=== PATIENT | male | born 1940 | race Caucasian/White ===

== ENCOUNTER 2017-11-21 09:16 | Inpatient (IN) | payer OTHER, SELFPAY ==
[2017-11-06 08:58] VITALS: BMI 32.8
[2017-11-21] VITALS (14 sets, daily range): BP systolic 114–163; BP diastolic 70–82; PULSE 66–87; RESP 10–18; TEMP 36.5–36.7; O2SAT 88–98; BMI 30.9
--- NOTE | 2017-11-21 | DI.RAD.S_ITS ---
PROCEDURE: XR LUMBAR SPINE 2-3V INDICATIONS: XLIF TECHNIQUE: 2 views of the lumbar spine were acquired. COMPARISON: None. FINDINGS: 2 spot fluoroscopic intraoperative views demonstrating L2-L4 left-sided paraspinal machelle and pedicle screw fixation, and interbody cage grafts Dictated by: Michael Lopez M.D. on 11/21/2017 at 19:49 Approved by: Michael Lopez M.D. on 11/21/2017 at 19:50
[2017-11-21] MEDS: LACTATED RINGERS 1,000 ML 42 ML IV ×2 (10:40→15:08)
[2017-11-21] MEDS: CEFAZOLIN 2 GM/100 ML FROZ.PIGGY IV ×2 (13:15→21:10)
--- NOTE | 2017-11-21 14:05 | SUR.OPER ---
Right lateral on padded OR table. Head on pillow, gel axillary roll, pillow to support left arm. Legs flexed, pillows between legs, gel pad under down leg and ankle. Multiple passes of 3 inch cloth tape across shoulder, hip, upper and lower legs to secure patient on OR table. Prone on spine table, head in foam head support, padded chest and pelvic supports, gel pad at knees, lower legs supported by pillows; nipples, genitalia and toes free of pressure, arms secured on foam padded arm boards at <90 degrees abduction. Tape over blanket at thigh secured to table.
[2017-11-21] MEDS: VANCOMYCIN 1,000 MG VIAL 1000 MG TOP (14:16)
[2017-11-21] MEDS: THROMBIN (BOVINE) 5,000 UNIT VIAL 5000 UNIT TOP (14:16)
[2017-11-21] MEDS: BUPIVACAINE 0.5% (PF) 4 ML, MORPHINE-PF 4 MG, BUTORPHANOL 1 MG, fentaNYL 100 MCG INJ (14:16)
[2017-11-21] MEDS: SODIUM CHLORIDE 0.9% 1,000 ML, GENTAMICIN 80 MG IRR (14:17)
--- NOTE | 2017-11-21 16:29 | PM.OP.1 ---
Operative Date/Time/Diagnoses Date of procedure: 11/21/17 Time of procedure: 16:29 Pre-op diagnosis: Lumbar stenosis with radiculopathy History of lumbar laminectomy Lumbar disc herniation Post-op diagnosis: same Procedure & Clinicians Procedure: L2-3, L3-4 anterior fusion with cages L2-3, L3-4 posterior fusion L2, L3, L4 screws Iliac crest bone graft L2-3 diskectomy Use of microscope Placement of epidural catheter Same procedure as scheduled: Yes Indications: [age] year old male with intractable pain from lumbar disc herniation and stenosis. They had failed conservative management and requested operative intervention. Risks and benefits of surgery were discussed and appropriate consents were obtained. Surgeon: Be Beckham Creative Recruiter: Radha Walters Click Yes if Unassisted: No Anesthesia Type: General Operative Notes Findings: None Closure Type: primary Specimen(s): none sent Implants & Drains: Nuvasive XLIF cages and MAS Reline screws Applied: catheter Estimated Blood Loss (mL): 30 Procedure in detail: Patient was brought to the operating room and intubated on the table. Time-out was performed. They were then rolled over to the lateral decubitus position with the [id number]. The table was bent and they were taped down in the correct position. X-rays were taken to confirm a true AP and lateral. Preoperative antibiotics were given. The left flank was prepped and draped in standard sterile fashion. Using fluoroscopy, a 3 cm incision was made above the iliac crest. We bluntly dissected down with Metzenbaum scissors and split the 3 abdominal muscle layers. We dissected out the retroperitoneal space and using finger guidance, brought our 1st dilator down to the psoas muscle. Using neuromonitoring and fluoroscopy, we placed it through the psoas onto the L3-4 disc space in an anterior position and gradually pulled the dilator posteriorly along the disc space. We placed our guidewire and measured our depth for the retractor. We then dilated with the next 2 dilators and then placed our retractor over the dilators. Position was confirmed with fluoroscopy and the retractor was locked down to the bar. We opened up the retractor and checked with neuro monitoring. We then placed the dashawn and again checked with neuro monitoring. The retractor was opened further and the ALL retractor was placed. An annulotomy was performed. We then performed a complete diskectomy with ring curette, pituitary, box osteotome. A Willis was advanced across the disc space under fluoroscopy to release the lateral annulus on the opposite side. We then used sequentially larger trials and confirmed under fluoroscopy. An XLIF cage was packed with Osteocell bone graft and impacted into the L3-4 disc space with fluoroscopy for the anterior fusion at this level. The wound was irrigated. The retractor was closed down. The dashawn was removed. We carefully removed the retractor with direct visualization to make sure there was no neurovascular or abdominal injury. X-rays were taken. We then went up to L2-3. Using the same technique with dilation, retractor, diskectomy, and placement of an anterior cage with bone graft, we did the anterior fusion at L2-3. The retractor was carefully removed and final x-rays were taken. The muscle fascia was closed, superficial tissue was closed. The skin was closed. Sterile dressing was placed. The patient was then rolled over on the well-padded prone position on the Trav table. Using fluoroscopy for localization, a 5 cm incision was made to the well-marked left of the midline. We split down through the lumbodorsal fascia with the Bovie. We then percutaneously placed Jamshidi needles down the left pedicles of L2, L3, and L4 with fluoroscopy and neural monitoring. We change these out guidewires. We then tapped and placed our screw shanks. We opened up the retractor blades. We dissected the posterolateral gutter and the transverse processes of L2, L3 and L4 as well as medially along the lamina at L2-3. We used a bur to decorticate the transverse processes. We then brought in the microscope. A left-sided laminotomy was performed at L2-3 with a bur and Kerrison rongeurs. We kept working out laterally , almost removing the whole pars, and inferiorly until we were coming up underneath the L3 lamina and exposed below our pedicle of L3. The dura was densely scarred down to the disc below it but we were gradually able to free this up with a ball probe. We were able to free up several loose extruded fragments matching up to his disc herniation. At the end we could sweep a ball probe underneath the exiting nerve root as well as the dura and the nerve root above and there was no further pressure on the nerves. This completed the diskectomy. The wound was copiously irrigated. A small stab incision was made over the PSIS and a Jamshidi needle was placed into the iliac crest and several mL of bone marrow was aspirated. This was mixed with our locally harvested bone graft as well as the remaining Osteocell and placed in the posterolateral gutter for fusion at L2-3 and L3-4. An epidural catheter was primed with 4mL of 0.5% bupivacaine, 100 mcg fentanyl, 4 mg Duramorph, 1 mg Stadol. The dura was depressed under the cephalad lamina with a ball probe and the epidural catheter was gently advanced 6 cm cephalad. The fascia was then closed. The epidural was then injected without resistance. The catheter was pulled and we closed more over the fascia. Vancomycin powder was placed in the wound. The superficial and skin were closed. Sterile dressing was placed. The patient was then rolled over, extubated, brought to the recovery room with no complications. Complications: none Condition: stable Disposition: PACU Plan for aftercare: Inpatient. Up with physical therapy
--- NOTE | 2017-11-21 17:14 | SUR.PHASEI ---
Report given to [place]
--- NOTE | 2017-11-21 17:37 | SUR.PHASEI ---
patient denies pain. Responds appropriately to questions and following commands but still drowsy and calling out go [employer]! vital signs remain stable
[2017-11-21] MEDS: fentaNYL 100 MCG/2 ML INJ IV (17:42)
[2017-11-21] MEDS: CELECOXIB 200 MG CAPSULE 400 MG PO (19:23)
[2017-11-21] MEDS: HYDROCODONE/ACET 5/325 TABLET 2 TAB PO (19:24)
[2017-11-21] MEDS: LACTATED RINGERS 1,000 ML 125 ML IV (19:28)
[2017-11-21] MEDS: ONDANSETRON 4 MG/2 ML INJ IV (19:30)
[2017-11-21] MEDS: LORazepam 2 MG/ML SYRINGE 0.25 MG IV (21:30)
[2017-11-22] VITALS (8 sets, daily range): BP systolic 122–150; BP diastolic 47–82; PULSE 63–77; RESP 15–20; TEMP 36.4–36.7; O2SAT 92–99; BMI 31.2
[2017-11-22] MEDS: LACTATED RINGERS 1,000 ML 125 ML IV ×2 (03:30→12:28)
[2017-11-22] MEDS: ONDANSETRON 4 MG/2 ML INJ IV (04:56)
[2017-11-22] MEDS: CEFAZOLIN 2 GM/100 ML FROZ.PIGGY IV (04:57)
[2017-11-22] MEDS: LORazepam 2 MG/ML SYRINGE 0.25 MG IV (04:57)
[2017-11-22 05:17] LABS: Hematocrit 38.9 % (41-53); Hemoglobin 12.8 g/dL (13.5-17.5)
[2017-11-22 05:29] LABS: Blood Urea Nitrogen 21 mg/dL (9-20); Calcium 8.8 mg/dL (8.4-10.2); Carbon Dioxide 24 mmol/L (22-32); Chloride 103 mmol/L (98-107); Estimated Glomerular Filt Rate > 60.0 mL/min (>60); Glucose 208 mg/dL (80-110); HEMOLYSIS < 15 (0-50); Potassium 4.5 mmol/L (3.4-5.1); Sodium 141 mmol/L (137-145)
--- NOTE | 2017-11-22 06:08 | PC.NURSE ---
As per previous RN report, Patient was nauseous throughout evening shift and vomitted 50cc. 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 About ten minutes later patient vommited another 200cc. I gave him ativan and zofran and soon after patient fell back asleep and has been sleeping since. I did not give him his Synthroid due to his vomitting. IV ABX and fluids continued however. No complaints of pain. Hillman patent, draining 300mL of clear yellow urine. SCD's applied on and off for patient wanting them off at times during sleep. Continued on 3L NC for low O2 saturations while sleeping, usually at around 92%.
--- NOTE | 2017-11-22 08:01 | PM.PNPO.1 ---
Subjective Date Patient Seen: 11/22/17 Time Patient Seen: 08:01 Interval history: He did sleep well last night. Had some nausea and vomiting although that is better. Pain is minimal. Exam Vital Signs (past 8 hours): - 11/22/17 04:18 11/22/17 04:56 Temperature 97.8 F Pulse Rate 70 75 Respiratory Rate 16 Blood Pressure 150/82 H Pulse Oximetry 92 97 Oxygen Delivery Method Nasal Cannula Oxygen Flow Rate 3 Const Orientation: alert and oriented x3 Back/Spine/Pelvis Other: Dressing CDI. 5/5 motor both lower extremities Objective Labs Result Diagrams: 11/22/17 05:00 11/22/17 05:00 Labs: Laboratory Results - last 24 hr 11/22/17 11/22/17 05:00 05:00 Hgb 12.8 L Hct 38.9 L Sodium 141 Potassium 4.5 Chloride 103 Carbon Dioxide 24 BUN 21 H Creatinine 1.00 Estimated GFR > 60.0 BUN/Creatinine Ratio 21.0 Glucose 208 H Calcium 8.8 Assessment & Plan Post-op Postoperative Procedures Operation Date: 11/21/17 11:15 Actual Procedures Side Surgeon p L2-3,L3-4 Ant/Post Instru. Fusion w/Bone Graft. Revision Laminectomy & Left Discectomy L2-3 Be Beckham MD He is doing well with pain. We will get him up with physical therapy today. His glucose is high and we will treat this. Quality VTE Deep Vein Thrombosis/Pulmonary Embolism Present on Admission: No
--- NOTE | 2017-11-22 08:37 | PC.NURSE ---
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 patient refusing anti emetics at this time, stating his body does not do well with multiple medications. Patient requesting acidophilis (he takes at home for upset stomach). patient advised to not eat full breakfast this morning (full tray delivered) and removed from room, patient requested to have tray back in room and wants to attempt to eat after his acidophilis). Will contact PA and continue to follow. Call light within reach.
--- NOTE | 2017-11-22 09:05 | CM.DANOTE ---
DCP: Case received, EMR reviewed and met with patient. Introduced self and role. DCP template completed with information currently available. Patient is a 77 year old male who admitted yesterday morning to the care of the hospitalist team. PCP: Dr. Bustamante. Payer: confirmed: Patricia of [facility]. Patient was admitted to the hospital for anterior posterior fusion. Has history of lumbar stenosis. Patient alert and oriented, independent at home, and lives with his spouse in [place]. P: DCP to continue to assess. Plan is to return home with possible outpatient physical therapy. Marion Pacheco RN/Road Train Driver
[2017-11-22] MEDS: METOCLOPRAMIDE 10 MG/2 ML INJ IV (10:44)
--- NOTE | 2017-11-22 11:09 | PT.IIE ---
Current Diagnoses Other intervertebral disc displacement, lumbar region (11/21/17) Strain of muscle, fascia and tendon of lower back, subsequent encounter (11/21/17) Other specified postprocedural states (11/21/17) Surgery Performed Operation Date: 11/21/17 11:15 Actual Procedures p L2-3,L3-4 Ant/Post Instru. Fusion w/Bone Graft. Revision Laminectomy & Left Discectomy L2-3 - Be Beckham MD Surgical History (Last Updated 11/06/17 @ 09:42 by Mariluz Rider RN) History of carpal tunnel surgery of right wrist (Acute) History of lumbar surgery (Acute) History of vasectomy (Acute) Hx of tonsillectomy (Acute) S/P cervical spinal fusion (Acute) Status post cataract extraction and insertion of intraocular lens of right eye (Acute) Medical History (Last Updated 11/06/17 @ 09:42 by Mariluz Rider RN) Chronic back pain (Acute) Depression (Acute) GERD (gastroesophageal reflux disease) (Acute) HTN (hypertension) (Acute) Hyperlipidemia (Acute) Hypothyroid (Acute) Kidney stones (Acute) LBBB (left bundle branch block) (Acute) Myocardial infarct (Acute) Numbness (Acute) Pre-diabetes (Acute) Sciatica (Acute) Seasonal allergies (Acute) Physical Therapy Inpatient Evaluation/Re-Eval M1 PT/OT-IP Prior Functional Status Start: 11/22/17 12:00 Freq: NEEDED Status: Active Protocol: Document 11/22/17 11:09 MDD (Rec: 11/22/17 12:12 MDD [id number]) Medical Review Prior Functional Status Medical History Reviewed Yes Communication normal Mobility and Gait Independent without AD, pt occasionally used walker in the home. Activities of Daily Living and IADL's independent Social History Household Members spouse Living Arrangements House Number of Floors (Floors) One Floor Number of Stairs To Enter/Railing? 2 steps to enter, no railings Home Environment High Toilet Walk in Shower Home Equipment Front Wheel Walker Straight Cane Employment Status Retired Additional Social History Comment Pt lives with his , Vanda , in [place]. He thinks they have a shower chair, but is not sure. His was not present during the session today. M2 PT-IP Current Condition Start: 11/22/17 12:00 Freq: NEEDED Status: Active Protocol: Document 11/22/17 11:09 MDD (Rec: 11/22/17 12:12 [facility] [id number]) Physical Therapy Current Condition Current Condition Evaluation Date 11/22/17 Treatment Diagnosis s/p TLIF Onset Date 11/21/17 Precautions Lumbar Precautions Log Roll No Twisting Limit Bending Lifting Restriction of 10 lbs Gait Belt above Incisional Area Other Precautions flores catheter Weight Bearing Status Weight Bearing Status Weight Bear as Tolerated M3 PT-IP Subjective Start: 11/22/17 12:00 Freq: NEEDED Status: Active Protocol: Document 11/22/17 11:09 MDD (Rec: 11/22/17 12:12 [facility] [id number]) Subjective Physical Therapy Visit Type Type Initial Evaluation Visit Start Time 10:48 Visit Stop Time 11:09 Total Visit Minutes 21 Number of SLITTING MACHINE OPERATOR HELPER Visits 0 Physical Therapy Visit Comments Patient Comments Pt reports feeling very uncomfortable today. Intermittently nauseated with occasional vomiting. Has not yet been able to eat breakfast . Therapy Pain Assessment Pain When Pain Assessed During Mobility Pain Present Pain Present Pain Reported Location l back Scale Used Pt unable to provide a number for pain. Description Aching Pain Behaviors Calling Out Moaning Wincing M4 PT-IP Mobility and Gait Start: 11/22/17 12:00 Freq: NEEDED Status: Active Protocol: Document 11/22/17 11:09 MDD (Rec: 11/22/17 12:12 [facility] [id number]) PT-Bed Mobility Assessment Rolling Type of Rolling Roll to Right Level of Assist Minimal Assistance Supine to Sit Supine to Sit Moderate Assistance Bedrails Scooting Scooting to Edge of Bed Standby Assistance PT-Transfer Assessment Sit to and From Stand Sit to and from Stand Contact Guard Assistance Equipment Transfer Assistive Device Gait Belt Front Wheeled Walker Transfers Transfer Destination Chair Toilet Transfer Technique Stand Step Pivot Transfer Ability Level of Assist Contact Guard Assistance Comments Mobility Comments Pt ambulated to and from the BR, was able to perform stand to sit with CGA. Gait Assessment Gait Gait Assistance Required: Contact Guard Assist Distance (Feet) (feet) 20 Able to Maintain Weight Bearing Status Yes During Gait Assistive Devices Assistive Device Gait Belt Front Wheeled Walker Gait Deviations General Gait Pattern Antalgic Decreased Stride Length Step-to Gait Wide Based Gait Comments Gait Comments Pt very guarded with movements . PT-Balance Assessment Sitting Balance and Reactions Static Sitting Balance Ability Normal Dynamic Sitting Balance Ability Normal Standing Balance and Reactions Static Standing Balance Ability Good Dynamic Standing Balance Ability Good M5 PT-IP Objective Assessments Start: 11/22/17 12:00 Freq: NEEDED Status: Active Protocol: Document 11/22/17 11:09 MDD (Rec: 11/22/17 12:12 MDD [id number]) Orientation Orientation/Cognition Level of Alertness Alert Orientation Name Age Birthday Month Date Year Day of Week Place Situation Language Function Ability No Deficits Noted Safety Awareness Understands Safety Issues Memory Description No Deficits Noted Gross Range of Motion Lower Extremity ROM Assessment Within Functional Limits Strength Lower Extremity Strength Assessment Within Functional Limits Sensation Assessment Sensation Gross Sensation WNL Light Touch Intact M6 PT-IP Treatment Start: 11/22/17 12:00 Freq: NEEDED Status: Active Protocol: Document 11/22/17 11:09 MDD (Rec: 11/22/17 12:12 MDD [id number]) Physical Therapy Treatment Education Education Provided Precautions Weight Bearing Status Post-Op Packet Safety M7 PT-IP Assessment and Plan Start: 11/22/17 12:00 Freq: NEEDED Status: Active Protocol: Document 11/22/17 11:09 MDD (Rec: 11/22/17 12:12 MDD [id number]) PT Summary Assessment and Plan Potential Rehabilitation Potential Good Status of Condition at Evaluation Evolving Summary Impairments Pain ROM Bed Mobility Transfers Gait Activity Tolerance Progress Towards Goals Progressing Toward Goals Assessment Summary Pt demonstrates mild impairments in bed mobility and transfers this day secondary to pain. He will benefit from inpatient PT to maximize function prior to d/c home. Per pt report, is able bodied and available to help if needed. He will need to demonstrate ability to ascend/descend stairs safely prior to d/c home. Goals Bed Mobility Goal Independent Transfer Goal Independent Gait Goal Independent Front Wheel Walker Gait Distance 100 feet Other Goals Ascend/descend 2 stairs with no handrails (handhold assist or cane). Frequency of Treatment Frequency Of Treatment Twice a Day Treatment Plan Physical Therapy Treatment Plan Bed Mobility Training Transfer Training Gait Training Therapeutic Exercise Post Op Education Discharge Planning Recommendations To Nursing Amount of Assist Needed 1 Person Assist Discharge Recommendations PT Discharge Recommendations Home Home with Assistance Equipment Needed for Home Before Pt may benefit from a bath Discharge chair if he no longer has one.
[2017-11-22] MEDS: ASPIRIN EC 81 MG TABLET PO (11:30)
[2017-11-22] MEDS: INSULIN ASPART 100 UNIT/ML INSULN PEN SUBCUT (12:14)
[2017-11-22] MEDS: HYDROCODONE/ACET 5/325 TABLET 1 TAB PO ×2 (12:28→19:44)
--- NOTE | 2017-11-22 13:50 | OT.IP.EVAL ---
Current Diagnoses Other intervertebral disc displacement, lumbar region (11/21/17) Strain of muscle, fascia and tendon of lower back, subsequent encounter (11/21/17) Other specified postprocedural states (11/21/17) Surgery Performed Operation Date: 11/21/17 11:15 Actual Procedures p L2-3,L3-4 Ant/Post Instru. Fusion w/Bone Graft. Revision Laminectomy & Left Discectomy L2-3 - Be Beckham MD Past Medical History (Last Updated 11/06/17 @ 09:42 by Mariluz Rider RN) Chronic back pain (Acute) Depression (Acute) GERD (gastroesophageal reflux disease) (Acute) HTN (hypertension) (Acute) Hyperlipidemia (Acute) Hypothyroid (Acute) Kidney stones (Acute) LBBB (left bundle branch block) (Acute) Myocardial infarct (Acute) Numbness (Acute) Pre-diabetes (Acute) Sciatica (Acute) Seasonal allergies (Acute) Surgical History (Last Updated 11/06/17 @ 09:42 by Mariluz Rider RN) History of carpal tunnel surgery of right wrist (Acute) History of lumbar surgery (Acute) History of vasectomy (Acute) Hx of tonsillectomy (Acute) S/P cervical spinal fusion (Acute) Status post cataract extraction and insertion of intraocular lens of right eye (Acute) Occupational Therapy Inpatient Evaluation/Re-Eval M1 PT/OT-IP Prior Functional Status Start: 11/22/17 12:00 Freq: NEEDED Status: Active Protocol: Document 11/22/17 13:50 PJM (Rec: 11/22/17 17:03 PJM [id number]) Medical Review Prior Functional Status Medical History Reviewed Yes Diet/Fluid Consistency Regular Communication normal Mobility and Gait Independent without AD, pt occasionally used walker in the home. Activities of Daily Living and IADL's independent, does all IADLS at home Prior Functional Level (Other details) can provide 24 hr assist at d/c Social History Household Members spouse Living Arrangements House Number of Floors (Floors) One Floor Number of Stairs To Enter/Railing? 2 steps to enter, no railings Home Environment High Toilet Walk in Shower Home Equipment Front Wheel Walker Straight Cane Shower Seat with Backrest Long Handled Sponge Guest Relations Coordinator Employment Status Retired Additional Social History Comment Pt declines sock aid as prefers to assist pt with socks PRN. M2 OT-IP Current Condition Start: 11/22/17 16:49 Freq: Status: Active Protocol: Document 11/22/17 13:50 PJM (Rec: 11/22/17 17:03 PJ [id number]) Occupational Therapy Current Condition Current Condition Evaluation Date 11/22/17 Treatment Diagnosis decreased self care, functional mobility s/p L2-3, L 3-4 ALIF Diagnosis Onset Date 11/21/17 Post Operative Precautions Lumbar Precautions Log Roll No Twisting Limit Bending Lifting Restriction of 10 lbs Gait Belt above Incisional Area Other Precautions flores catheter Weight Bearing Status Weight Bearing Status Weight Bear as Tolerated M3 OT- IP Subjective and Pain Start: 11/22/17 16:49 Freq: Status: Active Protocol: Document 11/22/17 13:50 PJM (Rec: 11/22/17 17:03 PJ [id number]) OT- Subjective Occupational Therapy Visit Type Type Initial Evaluation Visit Start Time 13:15 Visit Stop Time 13:50 Total Visit Minutes 35 Occupational Therapy Visit Comments Patient Comments I hope I can go home tomorrow. Patient/Caregiver Goals to be able to feed his pets and outside birds, other small animals at home OT Pain Assessment Pain When Pain Assessed After Treatment Pain Present Pain Present Pain Reported Location l back Intensity 6 Scale Used Numeric (1 - 10) Description Aching Acute Pain Behaviors Guarding Management Techniques Distraction Timing of Activity with Medications M4 OT- IP ADL's Start: 11/22/17 16:49 Freq: Status: Active Protocol: Document 11/22/17 13:50 PJM (Rec: 11/22/17 17:03 PJ [id number]) OT [id number] General Evaluation Self-Feeding Ability Independent Comments OT Self-Feeding Comments poor appetite and had nausea this AM OT ADL-Grooming General Evaluation Grooming Ability Standby Assistance Areas Needing Assistance Face Washing Comments OT Grooming Comments in bed OT ADL-Dressing General Eval Lower Body Dressing Ability Maximum Assistance Assistive Devices Dressing Assistive Devices Guest Relations Coordinator Comments OT Dressing Comments Pt has forensic psychologist, declines sock aid as will assist. OT ADL-Toileting General Evaluation Toileting Ability Total Assistance Areas Needing Assistance Empty Catheter or Colostomy Comments OT Toileting Comments flores still in place OT ADL-Bathing Bathing Type Bathing Type Sponge Bath General Evaluation Bathing Ability Maximal Assistance M5 OT- IP IADL's Start: 11/22/17 16:49 Freq: Status: Active Protocol: Document 11/22/17 13:50 PJM (Rec: 11/22/17 17:03 PJ [id number]) OT-Instrumental Activities of Daily Living Deficits IADL Deficits Identified Deficits Home Safety Awareness Awareness of Need for Assistance at Home Good Awareness Ability to Problem Solve Emergency Able to Problem Solve Situations Medication Management Medication Management No Deficits Identified Money Management Money Management No Deficits Identified Meal Preparation Meal Preparation Caregiver Provides Assist Assembling Machine Operator Assembling Machine Operator Caregiver Provides Assist Driving Driving Caregiver Provides Assist Driving Comments until pt able M6 OT- IP Functional Cognition Start: 11/22/17 16:49 Freq: Status: Active Protocol: Document 11/22/17 13:50 PJM (Rec: 11/22/17 17:03 PJ [id number]) Cognitive Factors Limiting Selfcare Function Cognitive Ability Level of Alertness Drowsy Attention Span Ability Capable of Focused Attention Capable of Sustained Attention Ability to Follow Commands Able to Follow One Step Commands Cognitive Comments Cognitive Assessment Comments Pt mildy drowsy from pain meds . OT- Vision and Hearing OT- Hearing Assessment OT- Hearing Assessment Hearing Impaired Right Ear Impaired Left Ear Impaired Use of Hearing Aids OT- Vision Assessment Vision History Cataracts Vision Assessment Comments pt hears better on Left, pt has had R cataract removed, needs L one done when recovered from back surgery M7 OT- IP Mobility and Balance Start: 11/22/17 16:49 Freq: Status: Active Protocol: Document 11/22/17 13:50 PJM (Rec: 11/22/17 17:03 PJ [id number]) OT-Transfer Assessment Comments Mobility Comments pt declined OOB this session due to fatigue, see P.T. notes OT- Gait Assessment Comments Gait Ability Comments pt declined OOB this session due to fatigue, see P.T. notes OT- Balance Assessment Comments Other Balance Tests/Deviations/Treatment pt declined OOB this session : due to fatigue, see P.T. notes M8 OT- IP Objective Assessments Start: 11/22/17 16:49 Freq: Status: Active Protocol: Document 11/22/17 13:50 PJM (Rec: 11/22/17 17:03 PJ [id number]) OT Gross Range of Motion Upper Extremity Range of Motion Assessment Within Functional Limits OT Strength Upper Extremity Strength Assessment Within Functional Limits OT- Coordination Assessment Comments Coordination Comments WFL BUE OT-Muscle Tone Assessment Muscle Tone WNL Yes OT Sensation Assessment Comments Summary Comments pt reports sensory deficits in R 4th and 5th fingers due to ulnar nerve compression at elbow; pt is L dominant Edema Edema Absent M9 OT- IP Assessment and Plan Start: 11/22/17 16:49 Freq: Status: Active Protocol: Document 11/22/17 13:50 PJM (Rec: 11/22/17 17:03 PJM [id number]) OT Summary Assessment and Plan Potential Rehabilitation Potential Good Analytic Complexity at Evaluation Low Summary OT Impairments Pain Balance Functional Mobility Grooming Dressing Toileting Bathing Toilet Transfers Shower Transfers Assessment Summary Low complexity OT assessment completed with emphasis on self care skills within new lumbar spine precautions. here for education this session and states she can assist PRN with all self care and mobility at home. Provided education re: chair selection , posture, car transfers this session and they verbalize understanding. Plan 1-2 additional OT visits to practice functional mobility and adapted ADLS. Recommend home with 24 hr assist from supportive when medically stable and clears P.T. Goals Grooming Goal Independent Dressing Goal Minimal Assistance Toileting Goal Independent Bathing Goal Standby Assistance Toilet Transfer Goal Standby Assistance Shower Transfer Goal Contact Guard Assistance Patient/Caregiver Education Goal Demonstrate Post-Op Precautions Caregiver Independent Assisting Patient Days to Meet Goals 3 Frequency of Treatment Frequency Of Treatment Once a Day Treatment Plan OT Treatment Plan ADL Training Functional Mobility Vision Retraining Discharge Planning Discharge Recommendations OT Discharge Recommendations Home with 24/ Assist Home Equipment Needs Recommend grab bars in shower stall and near toilet
--- NOTE | 2017-11-22 15:11 | PT.IPTN ---
Current Diagnoses Other intervertebral disc displacement, lumbar region (11/21/17) Strain of muscle, fascia and tendon of lower back, subsequent encounter (11/21/17) Other specified postprocedural states (11/21/17) Surgery Performed Operation Date: 11/21/17 11:15 Actual Procedures p L2-3,L3-4 Ant/Post Instru. Fusion w/Bone Graft. Revision Laminectomy & Left Discectomy L2-3 - Be Beckham MD Physical Therapy Treatment Note M2 PT-IP Current Condition Start: 11/22/17 12:00 Freq: NEEDED Status: Active Protocol: Document 11/22/17 11:09 MDD (Rec: 11/22/17 12:12 MDD [id number]) Physical Therapy Current Condition Current Condition Evaluation Date 11/22/17 Treatment Diagnosis s/p TLIF Onset Date 11/21/17 Precautions Lumbar Precautions Log Roll No Twisting Limit Bending Lifting Restriction of 10 lbs Gait Belt above Incisional Area Other Precautions flores catheter Weight Bearing Status Weight Bearing Status Weight Bear as Tolerated M3 PT-IP Subjective Start: 11/22/17 12:00 Freq: NEEDED Status: Active Protocol: Document 11/22/17 15:30 MDD (Rec: 11/22/17 15:32 MDD [id number]) Subjective Physical Therapy Visit Type Type Treatment Note Notes PT attempted to see pt 2x this afternoon. At 2:15 pt's family and dietary were in the room. Checked back at 3:11 and pt fast asleep. Nursing requested PT not to wake pt and allow him to sleep. Will f/u tomorrow morning. Goals Bed Mobility Goal Independent Transfer Goal Independent Gait Goal Independent Front Wheel Walker Gait Distance 100 feet Other Goals Ascend/descend 2 stairs with no handrails (handhold assist or cane). Frequency of Treatment Frequency Of Treatment Twice a Day Treatment Plan Physical Therapy Treatment Plan Bed Mobility Training Transfer Training Gait Training Therapeutic Exercise Post Op Education Discharge Planning Recommendations To Nursing Amount of Assist Needed 1 Person Assist Discharge Recommendations PT Discharge Recommendations Home Home with Assistance Equipment Needed for Home Before Pt may benefit from a bath Discharge chair if he no longer has one.
[2017-11-22] MEDS: HYDROMORPHONE 1 MG INJ 0.5 MG IV (16:19)
[2017-11-23 00:15] VITALS: BP 138/52; PULSE 72; RESP 18; TEMP 36.6; O2SAT 94
[2017-11-23] MEDS: HYDROCODONE/ACET 5/325 TABLET 2 TAB PO (00:44)
[2017-11-23] MEDS: METOCLOPRAMIDE 10 MG/2 ML INJ IV (03:37)
[2017-11-23 04:00] VITALS: BP 125/72; PULSE 64; RESP 18; TEMP 36.7; O2SAT 96
[2017-11-23] MEDS: HYDROMORPHONE 1 MG INJ 0.5 MG IV (04:27)
[2017-11-23] MEDS: HYDROCODONE/ACET 5/325 TABLET 1 TAB PO ×3 (05:38→14:08)
[2017-11-23] MEDS: LEVOTHYROXINE 50 MCG TABLET PO (05:41)
[2017-11-23 07:00] VITALS: BP 153/63; PULSE 59; RESP 16; TEMP 36.1; O2SAT 93
--- NOTE | 2017-11-23 08:05 | PM.DS.1 ---
History of Present Illness Date Patient Seen: 11/23/17 Time Patient Seen: 09:00 Chief complaint: l23 l34 anterior posterior instrument fusion Narrative: Patient seen bedside s/p XLIF POD #2. Patient is having pain, but would like to go home today if possible. Does not remember working with PT yesterday but did well with them. Discharge Providers Date of admission: 11/21/17 09:16 Primary care physician: Denny Bustamante MD Consults: 11/21/17 18:12 Consult to Occupational Therapy Evaluate & Treat Comment: Physician Instructions: Evaluate and treat Consult to Physical Therapy Evaluate & Treat Comment: Physician Instructions: Evaluate and Treat 11/21/17 18:45 Consult to Dietitian, Adult Routine Comment: Reason For Exam: over 20pound loss in 3 months Discharge provider: Radha Walters PA-C Exam Vital Signs (past 8 hours): - 11/23/17 00:15 11/23/17 04:00 11/23/17 07:00 Temperature 97.8 F 98.0 F 97.0 F L Pulse Rate 72 64 59 L Respiratory Rate 18 18 16 Blood Pressure 138/52 H 125/72 H 153/63 H Pulse Oximetry 94 96 93 Fraction of Inspired Oxygen 21 Oxygen Delivery Method Room Air Oxygen Flow Rate 0 Narrative Exam Narrative: WDWN NAD A&Ox3. Lumbar dressings clean, dry, and intact with minimal drainage. NVI in bilateral lower extremities, calves are soft and compressible. No focal deficits noted. Objective Labs Result Diagrams: 11/22/17 05:00 11/22/17 05:00 Discharge Plan Discharge Plan Patient Disposition: Home Discharge Med Rec/Prescriptions Prescriptions: New celecoxib [Celebrex] 200 mg Capsule 200 mg PO BID Qty: 60 RF: 0 hydrocodone-acetaminophen 5-325 mg Tablet 1 tab PO Q4HR PRN (Reason: Pain, Moderate (4-6)) Qty: 40 RF: 0 docusate sodium 100 mg Capsule 100 mg PO BID Qty: 0 RF: 0 hydroxyzine pamoate 25 mg Capsule 25 mg PO Q4HR PRN (Reason: Nausea And Vomiting) Qty: 60 RF: 0 Continue bupropion HCl 150 mg Tablet Extended Release 12 Hr 150 mg PO DAILY RF: 0 atorvastatin 80 mg Tablet 80 mg PO DAILY RF: 0 aspirin 81 mg Tablet,Delayed Release (Dr/Ec) 81 mg PO DAILY RF: 0 omeprazole 20 mg Capsule,Delayed Release(Dr/Ec) 20 mg PO BID RF: 0 benazepril 20 mg Tablet 20 mg PO DAILY RF: 0 fluticasone 50 mcg/actuation [place],Suspension 1 spray INTRANASAL DAILY PRN (Reason: seasonal allergies) RF: 0 levothyroxine 50 mcg Capsule 50 mcg PO DAILY RF: 0 Discontinued hydrocodone-acetaminophen 5-325 mg Tablet 1 tab PO Q4-6H PRN (Reason: pain) RF: 0 Follow up/Referrals: Be Beckham MD [Physician] - (Follow up in 2 weeks at your previously scheduled post-op appointment.) Provider Discharge Instructions Diet: Carb-consistent/Diabetic Activity: WBAT, use walker to ambulate, no bending/twisting, no lifting greater than 5 lbs Cold/Heat Therapy: Ice for 15 minutes at a time every hour while awake Skin/Wound/Dressing Care Report to your healthcare provider any signs of infection, such as:: chills, fever, night sweats, increased pain and unusual drainage Dressing: Keep dressing clean, dry, and intact until post-op appointment Visit Report/Discharge Packet Instructions: DI for Transforaminal Lumbar Interbody Fusion Discharge Data Primary Care Provider: Denny Bustamante Attending Provider: Be Beckham Admit Date/Time: 11/21/17 09:16 Quality VTE Deep Vein Thrombosis/Pulmonary Embolism Present on Admission: No
[2017-11-23] MEDS: CELECOXIB 200 MG CAPSULE PO (09:41)
[2017-11-23] MEDS: ASPIRIN EC 81 MG TABLET PO (09:41)
--- NOTE | 2017-11-23 10:46 | PT.IPTN ---
Current Diagnoses Other intervertebral disc displacement, lumbar region (11/21/17) Strain of muscle, fascia and tendon of lower back, subsequent encounter (11/21/17) Other specified postprocedural states (11/21/17) Surgery Performed Operation Date: 11/21/17 11:15 Actual Procedures p L2-3,L3-4 Ant/Post Instru. Fusion w/Bone Graft. Revision Laminectomy & Left Discectomy L2-3 - Be Beckham MD Physical Therapy Treatment Note M2 PT-IP Current Condition Start: 11/22/17 12:00 Freq: NEEDED Status: Active Protocol: Document 11/22/17 11:09 MDD (Rec: 11/22/17 12:12 MDD [id number]) Physical Therapy Current Condition Current Condition Evaluation Date 11/22/17 Treatment Diagnosis s/p TLIF Onset Date 11/21/17 Precautions Lumbar Precautions Log Roll No Twisting Limit Bending Lifting Restriction of 10 lbs Gait Belt above Incisional Area Other Precautions flores catheter Weight Bearing Status Weight Bearing Status Weight Bear as Tolerated M3 PT-IP Subjective Start: 11/22/17 12:00 Freq: NEEDED Status: Active Protocol: Document 11/23/17 10:46 MDD (Rec: 11/23/17 12:49 MDD [id number]) Subjective Physical Therapy Visit Type Type Treatment Note Visit Start Time 10:30 Visit Stop Time 10:46 Total Visit Minutes 16 Notes 147/80 mm Hg beginning of session. Number of REACTOR SERVICE OPERATOR Visits 0 Physical Therapy Visit Comments Patient Comments Pt reports feeling strange this am. He states that he just became dizzy, but is agreeable to work with therapy . Therapy Pain Assessment Pain When Pain Assessed At Rest Pain Present Pain Present Pain Reported Location l back Scale Used Pt unable to quantify pain today Description Aching Pain Behaviors Facial Grimacing Guarding Pain Management Techniques Timing of Activity with Medications M4 PT-IP Mobility and Gait Start: 11/22/17 12:00 Freq: NEEDED Status: Active Protocol: Document 11/22/17 11:09 MDD (Rec: 11/22/17 12:12 MDD [id number]) PT-Bed Mobility Assessment Rolling Type of Rolling Roll to Right Level of Assist Minimal Assistance Supine to Sit Supine to Sit Moderate Assistance Bedrails Scooting Scooting to Edge of Bed Standby Assistance PT-Transfer Assessment Sit to and From Stand Sit to and from Stand Contact Guard Assistance Equipment Transfer Assistive Device Gait Belt Front Wheeled Walker Transfers Transfer Destination Chair Toilet Transfer Technique Stand Step Pivot Transfer Ability Level of Assist Contact Guard Assistance Comments Mobility Comments Pt ambulated to and from the BR, was able to perform stand to sit with CGA. Gait Assessment Gait Gait Assistance Required: Contact Guard Assist Distance (Feet) (feet) 20 Able to Maintain Weight Bearing Status Yes During Gait Assistive Devices Assistive Device Gait Belt Front Wheeled Walker Gait Deviations General Gait Pattern Antalgic Decreased Stride Length Step-to Gait Wide Based Gait Comments Gait Comments Pt very guarded with movements . PT-Balance Assessment Sitting Balance and Reactions Static Sitting Balance Ability Normal Dynamic Sitting Balance Ability Normal Standing Balance and Reactions Static Standing Balance Ability Good Dynamic Standing Balance Ability Good M5 PT-IP Objective Assessments Start: 11/22/17 12:00 Freq: NEEDED Status: Active Protocol: Document 11/22/17 11:09 MDD (Rec: 11/22/17 12:12 MDD [id number]) Orientation Orientation/Cognition Level of Alertness Alert Orientation Name Age Birthday Month Date Year Day of Week Place Situation Language Function Ability No Deficits Noted Safety Awareness Understands Safety Issues Memory Description No Deficits Noted Gross Range of Motion Lower Extremity ROM Assessment Within Functional Limits Strength Lower Extremity Strength Assessment Within Functional Limits Sensation Assessment Sensation Gross Sensation WNL Light Touch Intact M6 PT-IP Treatment Start: 11/22/17 12:00 Freq: NEEDED Status: Active Protocol: Document 11/23/17 10:46 MDD (Rec: 11/23/17 12:49 MDD [id number]) Physical Therapy Treatment Education Education Provided Precautions Post-Op Packet Safety Other Treatments Other Treatment Performed Pt demonstrated bed mobility with SBA only today with proper log roll. CGA for sit to stand and SBA for gait with FWW x 136 feet. Pt requires cues for posture and avoiding shrugging shoulders. He initially had difficulty remembering precautions, but was able to remember them with slight cueing. Refuses stair training this am, but willing to try this afternoon when his is here. M7 PT-IP Assessment and Plan Start: 11/22/17 12:00 Freq: NEEDED Status: Active Protocol: Document 11/23/17 10:46 MDD (Rec: 11/23/17 12:49 MDD [id number]) PT Summary Assessment and Plan Potential Rehabilitation Potential Good Status of Condition at Evaluation Stable Summary Impairments Pain ROM Bed Mobility Transfers Gait Activity Tolerance Progress Towards Goals Progressing Toward Goals Assessment Summary Pt demonstrates mild impairments in bed mobility and transfers this day secondary to pain. He will benefit from inpatient PT to maximize function prior to d/c home. Per pt report, is able bodied and available to help if needed. He will need to demonstrate ability to ascend/descend stairs safely prior to d/c home. Goals Bed Mobility Goal Independent Transfer Goal Independent Gait Goal Independent Front Wheel Walker Gait Distance 100 feet Other Goals Ascend/descend 2 stairs with no handrails (handhold assist or cane). Frequency of Treatment Frequency Of Treatment Twice a Day Treatment Plan Physical Therapy Treatment Plan Bed Mobility Training Transfer Training Gait Training Therapeutic Exercise Post Op Education Discharge Planning Recommendations To Nursing Amount of Assist Needed 1 Person Assist Discharge Recommendations PT Discharge Recommendations Home Home with Assistance Equipment Needed for Home Before Pt may benefit from a bath Discharge chair if he no longer has one.
[2017-11-23 12:00] VITALS: BP 127/51; PULSE 67; RESP 16; TEMP 36.7; O2SAT 95
--- NOTE | 2017-11-23 14:10 | OT.IP.TRT ---
Current Diagnoses Other intervertebral disc displacement, lumbar region (11/21/17) Strain of muscle, fascia and tendon of lower back, subsequent encounter (11/21/17) Other specified postprocedural states (11/21/17) Surgery Performed Operation Date: 11/21/17 11:15 Actual Procedures p L2-3,L3-4 Ant/Post Instru. Fusion w/Bone Graft. Revision Laminectomy & Left Discectomy L2-3 - Be Beckham MD Occupational Therapy Treatment Note M3 OT- IP Subjective and Pain Start: 11/22/17 16:49 Freq: Status: Active Protocol: Document 11/23/17 14:10 PJM (Rec: 11/24/17 12:44 PJ [id number]) OT- Subjective Occupational Therapy Visit Type Type Treatment Note Visit Start Time 13:46 Visit Stop Time 14:10 Total Visit Minutes 24 Notes Pt's here for education and states I am not sure he is ready to go home. OT Pain Assessment Pain When Pain Assessed After Treatment Pain Present Pain Present Pain Reported Location l back Intensity 3 Scale Used Numeric (1 - 10) Description Aching Acute M4 OT- IP ADL's Start: 11/22/17 16:49 Freq: Status: Active Protocol: Document 11/23/17 14:10 PJM (Rec: 11/24/17 12:44 PJM [id number]) OT ADL-Dressing General Eval Upper Body Dressing Ability Independent Lower Body Dressing Ability Minimal Assistance Comments OT Dressing Comments Pt able to don undershorts and pants with wig sales consultant with min cues and SBA. Pt/ decline sock aid and assisted pt with donning socks with pt in bed. Pt wears slip on shoes and can assist PRN. OT ADL-Toileting General Evaluation Toileting Ability Standby Assistance OT ADL-Bathing Comments OT Bathing Comments Pt delcines to shower here. Pt has all necessary bathroom safety equipment at home. M7 OT- IP Mobility and Balance Start: 11/22/17 16:49 Freq: Status: Active Protocol: Document 11/23/17 1410 PJM (Rec: 11/24/17 12:44 PJM [id number]) OT- Bed Mobility Assessment Rolling Type of Rolling Roll to Right Level of Assistance Standby Assistance Supine to Sit Supine to Sit Assist Standby Assistance Scooting Scooting to Edge of Bed Independent OT-Transfer Assessment Sit to and From Stand Sit to and from Stand Standby Assistance Transfers Transfer Ability Standby Assistance Technique Transfer Destination Car Chair Devices Transfer Assistive Devices Front Wheeled Walker Comments Mobility Comments Provided further education re: car transfers to pt/ and they verbalize understanding OT- Balance Assessment Sitting Balance and Reactions Static Sitting Balance Ability Good Dynamic Sitting Balance Ability Good Standing Balance and Reactions Static Standing Balance Ability Good Dynamic Standing Balance Ability Good Comments Other Balance Tests/Deviations/Treatment Nno LOB when standing to pull : pants over hips. M9 OT- IP Assessment and Plan Start: 11/22/17 16:49 Freq: Status: Active Protocol: Document 11/23/17 14:10 PJM (Rec: 11/24/17 12:44 PJM [id number]) OT Summary Assessment and Plan Potential Rehabilitation Potential Good Summary Progress Towards Goals Safe For Discharge Goals Met Assessment Summary Pt seen for final self care training session with pt and . very anxious to assist pt with all self care and encouraged her to let pt be as independent as possible within lumbar spine precautions. Pt needs occasional cues for precautions and able to cue him appropriately. All OT education completed today and goals met. Explained discharge criteria to . Pt still needs to be cleared by P.T. for stair training prior to d/c. No further OT services needed. Frequency of Treatment Frequency Of Treatment Discharge Discharge Recommendations OT Discharge Recommendations Home with 17/10 Assist Other Discharge Recommendations no further OT services needed
--- NOTE | 2017-11-23 14:55 | PT.IPTN ---
Current Diagnoses Other intervertebral disc displacement, lumbar region (11/21/17) Strain of muscle, fascia and tendon of lower back, subsequent encounter (11/21/17) Other specified postprocedural states (11/21/17) Surgery Performed Operation Date: 11/21/17 11:15 Actual Procedures p L2-3,L3-4 Ant/Post Instru. Fusion w/Bone Graft. Revision Laminectomy & Left Discectomy L2-3 - Be Beckham MD Physical Therapy Treatment Note M2 PT-IP Current Condition Start: 11/22/17 12:00 Freq: NEEDED Status: Discharge Protocol: Document 11/22/17 11:09 MDD (Rec: 11/22/17 12:12 MDD [id number]) Physical Therapy Current Condition Current Condition Evaluation Date 11/22/17 Treatment Diagnosis s/p TLIF Onset Date 11/21/17 Precautions Lumbar Precautions Log Roll No Twisting Limit Bending Lifting Restriction of 10 lbs Gait Belt above Incisional Area Other Precautions flores catheter Weight Bearing Status Weight Bearing Status Weight Bear as Tolerated M3 PT-IP Subjective Start: 11/22/17 12:00 Freq: NEEDED Status: Discharge Protocol: Document 11/23/17 14:55 GGD (Rec: 11/23/17 16:35 GGD [id number]) Subjective Physical Therapy Visit Type Type Treatment Note Visit Start Time 14:30 Visit Stop Time 14:55 Total Visit Minutes 25 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 Therapy Pain Assessment Pain When Pain Assessed At Rest Pain Present Pain Present Pain Reported Location l back Scale Used Pt unable to quantify pain M4 PT-IP Mobility and Gait Start: 11/22/17 12:00 Freq: NEEDED Status: Discharge Protocol: Document 11/23/17 14:55 GGD (Rec: 11/23/17 16:35 GGD [id number]) PT-Transfer Assessment Sit to and From Stand Sit to and from Stand Contact Guard Assistance Equipment Transfer Assistive Device Gait Belt Front Wheeled Walker Transfers Transfer Destination Wheelchair Transfer Ability Level of Assist Contact Guard Assistance Gait Assessment Gait Gait Assistance Required: Contact Guard Assist Distance (Feet) (feet) 40 Able to Maintain Weight Bearing Status Yes During Gait Assistive Devices Assistive Device Gait Belt Front Wheeled Walker Gait Deviations General Gait Pattern Antalgic Decreased Stride Length Step-to Gait Wide Based Gait Factors Limiting Gait Function Factors Limiting Gait Function Decreased Strength Pain Stair Climbing Assessment Evaluation Level of Assist On Stairs Contact Guard Assistance Devices Stair Climbing Assistive Devices Straight Cane Technique/Endurance Stair Climbing Direction Ascend and Descend Stair Climbing Technique Step to Step Number of Steps Climbed 3 Query Text: Stair Climbing Set # Repetitions (reps) 1 Comments Stair Climbing Comments Pt need cues for stair mobility. M5 PT-IP Objective Assessments Start: 11/22/17 12:00 Freq: NEEDED Status: Discharge Protocol: Document 11/22/17 11:09 MDD (Rec: 11/22/17 12:12 MDD [id number]) Orientation Orientation/Cognition Level of Alertness Alert Orientation Name Age Birthday Month Date Year Day of Week Place Situation Language Function Ability No Deficits Noted Safety Awareness Understands Safety Issues Memory Description No Deficits Noted Gross Range of Motion Lower Extremity ROM Assessment Within Functional Limits Strength Lower Extremity Strength Assessment Within Functional Limits Sensation Assessment Sensation Gross Sensation WNL Light Touch Intact M6 PT-IP Treatment Start: 11/22/17 12:00 Freq: NEEDED Status: Discharge Protocol: Document 11/23/17 14:55 GGD (Rec: 11/23/17 16:35 GGD [id number]) Physical Therapy Treatment Education Education Provided Precautions M7 PT-IP Assessment and Plan Start: 11/22/17 12:00 Freq: NEEDED Status: Discharge Protocol: Document 11/23/17 14:55 GGD (Rec: 11/23/17 16:35 GGD [id number]) PT Summary Assessment and Plan Summary Assessment Summary Pt improving with mobility. He was safe and stable with gait and stair mobility. He increase in pain with sit to stand. Frequency of Treatment Frequency Of Treatment Twice a Day Treatment Plan Physical Therapy Treatment Plan Bed Mobility Training Transfer Training Gait Training Therapeutic Exercise Post Op Education Discharge Planning Recommendations To Nursing Amount of Assist Needed 1 Person Assist Discharge Recommendations PT Discharge Recommendations Home Home with Assistance
== END 2017-11-23 15:08 | disposition home or self-care (01) | DRG 455 ==
PROVIDERS: Admitting Provider Orthopaedic Surgery; Family Provider Internal Medicine; PCP Internal Medicine; Visit Provider Orthopaedic Surgery
PROC: 0SG00A0 Fusion of Lumbar Vertebral Joint with Interbody Fusion Device, Anterior Approach, Anterior Column, Open Approach (ICD-10-PCS; CPT 22558; principal; 2017-11-21 11:15)
DX: M51.26 Other intervertebral disc displacement, lumbar region (principal); S39.012D Strain of muscle, fascia and tendon of lower back, subsequent encounter; E07.9 Disorder of thyroid, unspecified; I10 Essential (primary) hypertension; E78.5 Hyperlipidemia, unspecified; F32.9 Major depressive disorder, single episode, unspecified; I25.10 Atherosclerotic heart disease of native coronary artery without angina pectoris; N40.0 Benign prostatic hyperplasia without lower urinary tract symptoms; I44.7 Left bundle-branch block, unspecified; R73.03 Prediabetes; K21.9 Gastro-esophageal reflux disease without esophagitis; M48.061 Spinal stenosis, lumbar region without neurogenic claudication; R11.2 Nausea with vomiting, unspecified
CPT/HCPCS: 36415; 72100; 76001; 80048; 82962; 85014; 85018; 94760; 94762; 97116; 97161; 97165; 97530; 97535; C1776; C1788; J0330; J0595; J0690; J1100; J1170; J2060; J2250; J2274; J2405; J2704; J2765; J3010

== ENCOUNTER → 2018-01-24 10:41 | Outpatient (CLI) | payer OTHER, SELFPAY ==
[2017-11-21 18:26] VITALS: BMI 30.9
--- NOTE | 2018-01-24 | DI.RAD.S_ITS ---
PROCEDURE: XR CHEST 2V INDICATIONS: ACUTE BRONCHITIS TECHNIQUE: 2 views of the chest were acquired. COMPARISON: [facility], CR, CHEST 1VW (PORTABLE), 05/12/2011, 10:45. [facility], CR, CHEST 1VW (PORTABLE), 09/19/2013, 13:53. FINDINGS: Surgical changes and devices: Lower cervical spine fixation hardware. Lungs and pleura: No pleural effusions or pneumothorax. Lungs are clear, aside from minimal left basilar atelectasis. Mediastinum: Mediastinal contours are normal. Heart size is normal. Bones and chest wall: No suspicious bony abnormalities. Soft tissues appear unremarkable. IMPRESSION: Minimal left basilar atelectasis otherwise no acute cardiopulmonary disease. Dictated by: Claudy HUERTA Interpreted: Ba Barriga MD on 01/24/2018 at 13:57 Approved by: Ba Barriga M.D. on 01/24/2018 at 15:38
== END ==
PROVIDERS: PCP Internal Medicine; Visit Provider Student in an Organized Health Care Education/Training Program
DX: J20.9 Acute bronchitis, unspecified (principal)
CPT/HCPCS: 71046

== ENCOUNTER → 2019-04-17 09:20 | Outpatient (CLI) | payer OTHER, SELFPAY ==
[2017-11-21 18:26] VITALS: BMI 30.9
[2019-04-17 10:55] LABS: Alanine Aminotransferase 31 IU/L (<50); Albumin 4.6 g/dL (3.5-5.0); Albumin Globulin Ratio 1.4 (1.0-2.8); Alkaline Phosphatase 60 U/L (38-126); Aspartate Aminotransferase 29 IU/L (17-59); BUN Creatinine Ratio 17.5 (6-22); Bilirubin Total 0.6 mg/dL (0.2-1.3); Blood Urea Nitrogen 21 mg/dL (9-20); Calcium 9.1 mg/dL (8.4-10.2); Carbon Dioxide 24 mmol/L (22-32); Chloride 105 mmol/L (98-107); Cholesterol 189 mg/dL (140-199); Estimated Glomerular Filt Rate 58.4 mL/min (>60); Globulin 3.2 g/dL (1.7-4.1); Glucose 142 mg/dL (80-110); HDL Cholesterol 37 mg/dL (40-60); HEMOLYSIS < 15 (0-50); LDL Cholesterol Calculated 123 mg/dL (<100); Potassium 4.2 mmol/L (3.4-5.1); Sodium 141 mmol/L (137-145); Total Protein 7.8 g/dL (6.3-8.2); Triglycerides 144 mg/dL (35-150)
[2019-04-17 11:25] LABS: TSH w/ Reflex to FT4 5.05 uIU/mL (0.47-4.68)
[2019-04-17 11:49] LABS: Free T4, Direct Thyroxine 0.88 ng/dL (0.78-2.19)
== END ==
PROVIDERS: PCP Internal Medicine; Visit Provider Internal Medicine
DX: E78.00 Pure hypercholesterolemia, unspecified (principal); I10 Essential (primary) hypertension; E03.9 Hypothyroidism, unspecified
CPT/HCPCS: 36415; 80053; 80061; 84439; 84443

== ENCOUNTER → 2019-10-10 14:45 | Outpatient (ROUT) | payer OTHER, SELFPAY ==
[2017-11-21 18:26] VITALS: BMI 30.9
== END ==
PROVIDERS: PCP Internal Medicine; Visit Provider Internal Medicine
DX: N39.0 Urinary tract infection, site not specified (principal)
CPT/HCPCS: 87077; 87086; 87186

== ENCOUNTER → 2020-05-25 12:08 | Outpatient (CLI) | payer OTHER, SELFPAY ==
[2017-11-21 18:26] VITALS: BMI 30.9
[2020-05-25 12:51] LABS: Add Manual Diff / Slide Review NO; Basophils Absolute Auto 100 /uL (0-100); Basophils Percent Auto 0.7 % (0-2); Eosinophils Absolute Auto 300 /uL (0-450); Eosinophils Percent Auto 2.3 % (2-4); Hematocrit 43.8 % (41-53); Hemoglobin 14.8 g/dL (13.5-17.5); Lymphocytes Absolute Auto 2200 /uL (1100-4500); Lymphocytes Percent Auto 20.5 % (25-40); Mean Corpuscular HGB Conc 33.8 % (30-36); Mean Corpuscular Hemoglobin 28.8 PG (26-34); Mean Corpuscular Volume 85.2 fL (80-100); Monocytes Absolute Auto 900 /uL (0-900); Monocytes Percent Auto 7.8 % (3-14); Neutrophils Absolute Auto 7500 /uL (1500-7000); Neutrophils Percent Auto 68.7 % (50-75); Platelet Count 267 X10^3/uL (150-400); Red Blood Cell Count 5.13 X10^6/uL (4.5-5.9); Red Cell Distribution Width 13.7 % (11.6-14.8); White Blood Cell Count 10.9 X10^3/uL (4.5-11.0)
[2020-05-25 15:33] LABS: Alanine Aminotransferase 23 IU/L (<50); Albumin 4.3 g/dL (3.5-5.0); Albumin Globulin Ratio 1.5 (1.0-2.8); Alkaline Phosphatase 69 U/L (38-126); Aspartate Aminotransferase 23 IU/L (17-59); BUN Creatinine Ratio 19.3 (6-22); Bilirubin Total 0.7 mg/dL (0.2-1.3); Blood Urea Nitrogen 21 mg/dL (9-20); Calcium 9.6 mg/dL (8.4-10.2); Carbon Dioxide 24 mmol/L (22-32); Chloride 105 mmol/L (98-107); Estimated Glomerular Filt Rate > 60.0 mL/min (>60); Globulin 2.9 g/dL (1.7-4.1); Glucose 116 mg/dL (80-110); HEMOLYSIS < 15 (0-50); Potassium 4.3 mmol/L (3.4-5.1); Sodium 137 mmol/L (137-145); Total Protein 7.2 g/dL (6.3-8.2)
[2020-05-25 16:21] LABS: TSH w/ Reflex to FT4 4.83 uIU/mL (0.47-4.68)
[2020-05-25 18:21] LABS: Free T4, Direct Thyroxine 1.45 ng/dL (0.78-2.19)
== END ==
PROVIDERS: PCP Internal Medicine; Referring Provider Internal Medicine; Visit Provider Internal Medicine
DX: M48.02 Spinal stenosis, cervical region (principal); I10 Essential (primary) hypertension; I25.10 Atherosclerotic heart disease of native coronary artery without angina pectoris; E03.9 Hypothyroidism, unspecified
CPT/HCPCS: 36415; 80053; 84439; 84443; 85025

== ENCOUNTER → 2020-08-04 14:21 | Outpatient (CLI) | payer OTHER, SELFPAY ==
[2017-11-21 18:26] VITALS: BMI 30.9
--- NOTE | 2020-08-04 | DI.RAD.S_ITS ---
PROCEDURE: XR CHEST 2V INDICATIONS: DYSPNEA TECHNIQUE: 2 views of the chest were acquired. COMPARISON: [facility], CR, XR CHEST 2V, 01/24/2018, 10:26. FINDINGS: Surgical changes and devices: None. Lungs and pleura: Scattered subsegmental scarring and/or atelectasis. No acute consolidation. No pleural effusions or pneumothorax. Lung volumes are decreased. Mediastinum: Mediastinal contours are normal. Heart size is normal. Bones and chest wall: No suspicious bony abnormalities. Soft tissues appear unremarkable. IMPRESSION: No acute disease. Dictated by: Michael Lopez M.D. on 08/04/2020 at 17:10 Approved by: Michael Lopez M.D. on 08/04/2020 at 17:11
== END ==
PROVIDERS: PCP Internal Medicine; Referring Provider Internal Medicine; Visit Provider Internal Medicine
DX: R06.00 Dyspnea, unspecified (principal); R42 Dizziness and giddiness; R53.83 Other fatigue
CPT/HCPCS: 71046; 80053; 83880; 84443; 85025

== ENCOUNTER → 2020-08-04 19:12 | Outpatient (ROUT) | payer OTHER, SELFPAY ==
[2017-11-21 18:26] VITALS: BMI 30.9
[2020-08-04 19:36] LABS: Add Manual Diff / Slide Review NO; Basophils Absolute Auto 100 /uL (0-100); Basophils Percent Auto 0.8 % (0-2); Eosinophils Absolute Auto 400 /uL (0-450); Eosinophils Percent Auto 3.2 % (2-4); Hemoglobin 14.7 g/dL (13.5-17.5); Lymphocytes Absolute Auto 2800 /uL (1100-4500); Lymphocytes Percent Auto 24.8 % (25-40); Mean Corpuscular HGB Conc 33.3 % (30-36); Mean Corpuscular Hemoglobin 28.6 PG (26-34); Mean Corpuscular Volume 85.8 fL (80-100); Monocytes Absolute Auto 900 /uL (0-900); Monocytes Percent Auto 8.1 % (3-14); Neutrophils Absolute Auto 7200 /uL (1500-7000); Neutrophils Percent Auto 63.1 % (50-75); Platelet Count 254 X10^3/uL (150-400); Red Blood Cell Count 5.13 X10^6/uL (4.5-5.9); Red Cell Distribution Width 13.8 % (11.6-14.8); White Blood Cell Count 11.4 X10^3/uL (4.5-11.0)
[2020-08-04 19:51] LABS: HEMOLYSIS < 15 (0-50)
[2020-08-04 19:52] LABS: Alanine Aminotransferase 28 IU/L (<50); Albumin 4.1 g/dL (3.5-5.0); Albumin Globulin Ratio 1.3 (1.0-2.8); Alkaline Phosphatase 83 U/L (38-126); Aspartate Aminotransferase 28 IU/L (17-59); BUN Creatinine Ratio 16.1 (6-22); Bilirubin Total 0.4 mg/dL (0.2-1.3); Blood Urea Nitrogen 19 mg/dL (9-20); Calcium 9.7 mg/dL (8.4-10.2); Carbon Dioxide 23 mmol/L (22-32); Chloride 104 mmol/L (98-107); Estimated Glomerular Filt Rate 59.2 mL/min (>60); Globulin 3.1 g/dL (1.7-4.1); Glucose 125 mg/dL (80-110); Potassium 4.3 mmol/L (3.4-5.1); Sodium 138 mmol/L (137-145); Total Protein 7.2 g/dL (6.3-8.2)
[2020-08-04 20:07] LABS: NT-proBNP (BNP-Adult 18+) 159 pg/mL (<450)
[2020-08-04 20:18] LABS: TSH w/ Reflex to FT4 2.55 uIU/mL (0.47-4.68)
== END ==
PROVIDERS: PCP Internal Medicine; Visit Provider Internal Medicine
DX: R42 Dizziness and giddiness (principal); R53.83 Other fatigue; R06.00 Dyspnea, unspecified
CPT/HCPCS: 80053; 83880; 84443; 85025

== ENCOUNTER → 2021-09-29 15:44 | Outpatient (CLI) | payer OTHER, SELFPAY ==
[2017-11-21 18:26] VITALS: BMI 30.9
[2021-09-29 16:35] LABS: Hematocrit 45.5 % (41-53); Hemoglobin 15.3 g/dL (13.5-17.5); Mean Corpuscular HGB Conc 33.5 % (30-36); Mean Corpuscular Hemoglobin 28.6 PG (26-34); Mean Corpuscular Volume 85.2 fL (80-100); Platelet Count 219 X10^3/uL (150-400); Red Blood Cell Count 5.34 X10^6/uL (4.5-5.9); Red Cell Distribution Width 13.7 % (11.6-14.8); White Blood Cell Count 10.6 X10^3/uL (4.5-11.0)
[2021-09-29 16:39] LABS: Hemoglobin A1C% w Est Avg Glu 7.4 % (4.0-6.0)
[2021-09-29 16:55] LABS: Alanine Aminotransferase 38 IU/L (<50); Albumin 4.5 g/dL (3.5-5.0); Albumin Globulin Ratio 1.4 (1.0-2.8); Alkaline Phosphatase 59 U/L (38-126); Aspartate Aminotransferase 31 IU/L (17-59); BUN Creatinine Ratio 18.4 (6-22); Bilirubin Total 0.7 mg/dL (0.2-1.3); Blood Urea Nitrogen 21 mg/dL (9-20); Calcium 8.7 mg/dL (8.4-10.2); Carbon Dioxide 26 mmol/L (22-32); Chloride 105 mmol/L (98-107); Cholesterol 178 mg/dL (140-199); Estimated Glomerular Filt Rate > 60 mL/min (>60); Globulin 3.2 g/dL (1.7-4.1); Glucose 132 mg/dL (80-110); HDL Cholesterol 40 mg/dL (40-60); HEMOLYSIS < 15 (0-50); LDL Cholesterol Calculated 106 mg/dL (<100); Potassium 4.1 mmol/L (3.4-5.1); Sodium 141 mmol/L (137-145); Total Protein 7.7 g/dL (6.3-8.2); Triglycerides 161 mg/dL (35-150)
[2021-09-29 17:23] LABS: TSH w/ Reflex to FT4 3.25 uIU/mL (0.47-4.68)
== END ==
PROVIDERS: PCP Internal Medicine; Referring Provider Internal Medicine; Visit Provider Internal Medicine
DX: I25.10 Atherosclerotic heart disease of native coronary artery without angina pectoris (principal); E11.9 Type 2 diabetes mellitus without complications; R73.01 Impaired fasting glucose; E03.9 Hypothyroidism, unspecified; E78.2 Mixed hyperlipidemia; I10 Essential (primary) hypertension
CPT/HCPCS: 36415; 80053; 80061; 83036; 84443; 85027

== ENCOUNTER → 2022-01-13 14:56 | Outpatient (CLI) | payer OTHER, SELFPAY ==
[2017-11-21 18:26] VITALS: BMI 30.9
[2022-01-13 15:57] LABS: Hemoglobin A1C% w Est Avg Glu 6.5 % (4.0-6.0)
== END ==
PROVIDERS: PCP Internal Medicine; Referring Provider Internal Medicine; Visit Provider Internal Medicine
DX: E11.59 Type 2 diabetes mellitus with other circulatory complications (principal)
CPT/HCPCS: 36415; 83036

== ENCOUNTER → 2022-04-22 16:45 | Outpatient (CLI) | payer OTHER, SELFPAY ==
[2022-01-13 15:29] VITALS: BMI 30.9
[2022-04-22 17:59] LABS: Hemoglobin A1C% w Est Avg Glu 6.8 % (4.0-6.0)
[2022-04-22 18:02] LABS: Aspartate Aminotransferase 26 IU/L (17-59); BUN Creatinine Ratio 24.1 (6-22); Blood Urea Nitrogen 21 mg/dL (9-20); Calcium 9.2 mg/dL (8.4-10.2); Carbon Dioxide 26 mmol/L (22-32); Chloride 102 mmol/L (98-107); Cholesterol 188 mg/dL (140-199); Estimated Glomerular Filt Rate > 60 mL/min (>60); Glucose 92 mg/dL (80-110); HDL Cholesterol 49 mg/dL (40-60); HEMOLYSIS < 15 (0-50); LDL Cholesterol Calculated 110 mg/dL (<100); Potassium 4.1 mmol/L (3.4-5.1); Sodium 140 mmol/L (137-145); Triglycerides 147 mg/dL (35-150)
== END ==
PROVIDERS: PCP Internal Medicine; Referring Provider Internal Medicine; Visit Provider Internal Medicine
DX: E11.59 Type 2 diabetes mellitus with other circulatory complications (principal); E78.2 Mixed hyperlipidemia; I10 Essential (primary) hypertension
CPT/HCPCS: 36415; 80048; 80061; 83036; 84450

== ENCOUNTER → 2022-10-29 11:20 | Outpatient (CLI) | payer OTHER, SELFPAY ==
[2022-01-13 15:29] VITALS: BMI 30.9
[2022-10-29 12:36] LABS: Microalbumi Creatinin Ratio Ur 23.6 ug/mg CR (<30); Microalbumin Urine Random 4.7 mg/dL (0-1.6)
[2022-10-29 13:39] LABS: Aspartate Aminotransferase 29 IU/L (17-59); BUN Creatinine Ratio 18.6 (6-22); Blood Urea Nitrogen 21 mg/dL (9-20); Carbon Dioxide 23 mmol/L (22-32); Chloride 105 mmol/L (98-107); Estimated Glomerular Filt Rate > 60 mL/min (>60); Glucose 140 mg/dL (80-110); HEMOLYSIS < 15 (0-50); Potassium 4.5 mmol/L (3.4-5.1); Sodium 137 mmol/L (137-145)
[2022-10-29 14:11] LABS: TSH w/ Reflex to FT4 4.84 uIU/mL (0.47-4.68)
[2022-10-29 14:56] LABS: Free T4, Direct Thyroxine 1.03 ng/dL (0.78-2.19)
[2022-10-31 02:39] LABS: Labcorp Hemoglobin (Hb) A1c 7.5 % (4.8-5.6)
== END ==
PROVIDERS: PCP Internal Medicine; Referring Provider Internal Medicine; Visit Provider Internal Medicine
DX: E11.59 Type 2 diabetes mellitus with other circulatory complications (principal); E78.2 Mixed hyperlipidemia; E03.9 Hypothyroidism, unspecified
CPT/HCPCS: 36415; 80048; 82043; 82570; 83036; 84439; 84443; 84450

== ENCOUNTER → 2023-05-02 13:52 | Outpatient (CLI) | payer OTHER, SELFPAY ==
[2022-01-13 15:29] VITALS: BMI 30.9
[2023-05-02 15:27] LABS: BUN Creatinine Ratio 18.6 (6-22); Blood Urea Nitrogen 22 mg/dL (9-20); Calcium 9.7 mg/dL (8.4-10.2); Carbon Dioxide 24 mmol/L (22-32); Chloride 102 mmol/L (98-107); Estimated Glomerular Filt Rate > 60 mL/min (>60); Glucose 125 mg/dL (80-110); HEMOLYSIS < 15 (0-50); Potassium 4.2 mmol/L (3.4-5.1); Sodium 137 mmol/L (137-145)
[2023-05-02 15:59] LABS: TSH w/ Reflex to FT4 5.97 uIU/mL (0.47-4.68)
[2023-05-02 16:30] LABS: Free T4, Direct Thyroxine 0.93 ng/dL (0.78-2.19)
[2023-05-03 02:45] LABS: Hemoglobin A1C% w Est Avg Glu 7.1 % (4.0-6.0)
== END ==
PROVIDERS: PCP Internal Medicine; Referring Provider Internal Medicine; Visit Provider Internal Medicine
DX: E03.9 Hypothyroidism, unspecified (principal); E11.59 Type 2 diabetes mellitus with other circulatory complications; I10 Essential (primary) hypertension
CPT/HCPCS: 36415; 80048; 83036; 84439; 84443

== ENCOUNTER → 2023-08-19 11:19 | Outpatient (CLI) | payer MEDICARE, SELFPAY ==
[2022-01-13 15:29] VITALS: BMI 30.9
[2023-08-19 12:14] LABS: Hemoglobin A1C% w Est Avg Glu 7.8 % (4.0-6.0)
[2023-08-19 12:23] LABS: BUN Creatinine Ratio 16.5 (6-22); Blood Urea Nitrogen 20 mg/dL (9-20); Calcium 9.8 mg/dL (8.4-10.2); Carbon Dioxide 28 mmol/L (22-32); Chloride 103 mmol/L (98-107); Estimated Glomerular Filt Rate 59 mL/min (>60); Glucose 158 mg/dL (80-110); HEMOLYSIS < 15 (0-50); Sodium 139 mmol/L (137-145)
== END ==
PROVIDERS: PCP Internal Medicine; Referring Provider Internal Medicine; Visit Provider Internal Medicine
DX: E11.59 Type 2 diabetes mellitus with other circulatory complications (principal)
CPT/HCPCS: 36415; 80048; 83036

== ENCOUNTER → 2024-01-12 10:48 | Outpatient (CLI) | payer MEDICARE, SELFPAY ==
[2022-01-13 15:29] VITALS: BMI 30.9
[2024-01-12 11:51] LABS: BUN Creatinine Ratio 20.5 (6-22); Blood Urea Nitrogen 27 mg/dL (9-20); Calcium 9.6 mg/dL (8.4-10.2); Carbon Dioxide 23 mmol/L (22-32); Chloride 104 mmol/L (98-107); Estimated Glomerular Filt Rate 53 mL/min (>60); Glucose 142 mg/dL (80-110); HEMOLYSIS < 15 (0-50); Potassium 4.3 mmol/L (3.4-5.1); Sodium 135 mmol/L (137-145)
[2024-01-12 12:08] LABS: Hemoglobin A1C% w Est Avg Glu 7.3 % (4.0-6.0)
[2024-01-12 12:12] LABS: Creatinine Urine Random 79.24 mg/dL
[2024-01-12 12:18] LABS: Microalbumin Urine Random 1.9 mg/dL (0-1.6)
[2024-01-12 12:26] LABS: TSH w/ Reflex to FT4 2.74 uIU/mL (0.47-4.68)
== END ==
PROVIDERS: PCP Internal Medicine; Referring Provider Internal Medicine Cardiovascular Disease; Visit Provider Internal Medicine
DX: I25.10 Atherosclerotic heart disease of native coronary artery without angina pectoris (principal); E11.59 Type 2 diabetes mellitus with other circulatory complications; E78.5 Hyperlipidemia, unspecified; E03.9 Hypothyroidism, unspecified; I10 Essential (primary) hypertension
CPT/HCPCS: 36415; 80048; 82043; 82570; 83036; 84443

== ENCOUNTER → 2024-04-17 12:28 | Outpatient (CLI) | payer MEDICARE, SELFPAY ==
[2022-01-13 15:29] VITALS: BMI 30.9
[2024-04-17 13:56] LABS: Hemoglobin A1C% w Est Avg Glu 6.7 % (4.0-6.0)
[2024-04-17 14:06] LABS: Blood Urea Nitrogen 28 mg/dL (9-20); Calcium 9.3 mg/dL (8.4-10.2); Carbon Dioxide 23 mmol/L (22-32); Chloride 108 mmol/L (98-107); Estimated Glomerular Filt Rate 47 mL/min (>60); Glucose 122 mg/dL (80-110); HEMOLYSIS < 15 (0-50); Potassium 4.7 mmol/L (3.4-5.1); Sodium 139 mmol/L (137-145)
== END ==
PROVIDERS: PCP Internal Medicine; Referring Provider Internal Medicine; Visit Provider Internal Medicine
DX: E11.59 Type 2 diabetes mellitus with other circulatory complications (principal)
CPT/HCPCS: 36415; 80048; 83036

== ENCOUNTER → 2024-05-31 13:15 | Outpatient (CLI) | payer MEDICARE, SELFPAY ==
[2022-01-13 15:29] VITALS: BMI 30.9
[2024-05-31 15:23] LABS: BUN Creatinine Ratio 19.4 (6-22); Blood Urea Nitrogen 26 mg/dL (9-20); Calcium 9.3 mg/dL (8.4-10.2); Carbon Dioxide 24 mmol/L (22-32); Chloride 104 mmol/L (98-107); Estimated Glomerular Filt Rate 52 mL/min (>60); Glucose 111 mg/dL (80-110); HEMOLYSIS 27 (0-50); Potassium 4.6 mmol/L (3.4-5.1); Sodium 139 mmol/L (137-145)
== END ==
PROVIDERS: PCP Internal Medicine; Referring Provider Internal Medicine Cardiovascular Disease; Visit Provider Internal Medicine Cardiovascular Disease
DX: I50.9 Heart failure, unspecified (principal)
CPT/HCPCS: 36415; 80048

== ENCOUNTER → 2025-01-14 15:15 | Outpatient (CLI) | payer MEDICARE, SELFPAY ==
[2022-01-13 15:29] VITALS: BMI 30.9
[2025-01-14 18:05] LABS: Microalbumi Creatinin Ratio Ur 29.0 ug/mg CR (<30)
== END ==
PROVIDERS: PCP Internal Medicine; Referring Provider Internal Medicine; Visit Provider Internal Medicine
DX: I10 Essential (primary) hypertension (principal); E11.59 Type 2 diabetes mellitus with other circulatory complications
CPT/HCPCS: 82043; 82570